=== PATIENT | female | born 1940 | race Caucasian/White ===

== ENCOUNTER 2018-10-28 12:46 | Emergency (ER) | payer MEDICARE, BC ==
[2018-10-28] MEDS ORDERED: Tetan/Diph/Pertus SYR(Tdap)* 0.5 ML SYR(BOOSTRIX) use SYR IM ONE (13:59)
[2018-10-28] MEDS ORDERED: Lidocaine 1%* 5 ML VIAL INJ ONE (14:06)
--- NOTE | 2018-10-28 14:09 | UC ---
Laceration HPI - HPI Summary HPI Summary: 78 -year-old female who sustained numerous superficial lacerations to her left index finger and middle finger from a chainsaw. Her was using a chainsaw and she had her foot on the log he was cutting. When he cut through the log it gave way and she lost her balance and put her hand out and touch the chainsaw while it was spinning. Last tetanus was more than 10 years ago. - History Of Current Complaint Chief Complaint: UCLaceration Stated Complaint: LACERATION ON RT HAND Time Seen by Provider: 10/28/18 13:58 Hx Obtained From: Patient Laceration Location: Finger Mechanism Of Injury: Sharp Trauma Onset/Duration: Sudden Onset Severity: Moderate Pain Intensity: 2 Aggravating Factors: Movement - Allergies/Home Medications Allergies/Adverse Reactions: Allergies Allergy/AdvReac Type Severity Reaction Status Date / Time clindamycin Allergy Hives Verified 10/28/18 15:23 Penicillins Allergy Hives Verified 10/28/18 13:23 Home Medications: Home Medications Ascorbic Acid TAB* [Vitamin C TAB*] 500 mg PO DAILY 10/28/18 [History Confirmed 10/28/18] Calcium Carbonate [Calcium] 500 mg PO 10/28/18 [History] Garlic [Sm Garlic] 150 mg PO 10/28/18 [History] Lutein 10 mg PO 10/28/18 [History Confirmed 10/28/18] Magnesium Oxide [Magnesium] 250 mg PO 10/28/18 [History] Multivitamin [Multivitamins] 1 cap PO 10/28/18 [History] PMH/Surg Hx/FS Hx/Imm Hx Previously Healthy: Yes Endocrine History: Thyroid Disease GI/ History: Gastroesophageal Reflux - Surgical History Surgical History: None - Family History Known Family History: Positive: Non-Contributory - Social History Occupation: Retired Alcohol Use: Daily Alcohol Amount: ONE GLASS OF WINE Substance Use Type: None Smoking Status (MU): Never Smoked Tobacco Review of Systems All Other Systems Reviewed And Are Negative: Yes Skin: Positive: Other - Numerous superficial lacerations to left index and middle finger with a large one at the base of the left index finger. Motor: Positive: Negative Neurovascular: Positive: Negative Musculoskeletal: Positive: Negative Neurological: Positive: Negative Is Patient Immunocompromised?: No Physical Exam Triage Information Reviewed: Yes Appearance: Well-Appearing, No Pain Distress, Well-Nourished Vital Signs: Initial Vital Signs Temp 98.1 F 10/28/18 13:14 Pulse 72 10/28/18 13:14 Resp 18 10/28/18 13:14 BP 137/63 10/28/18 13:14 Pulse Ox 99 10/28/18 13:14 Vital Signs Reviewed: Yes Musculoskeletal: Positive: Strength Intact, ROM Intact, Other: - Good peripheral pulses neuro sensation capillary refill good finger strength to flexion extension against resistance. Neurological: Positive: Alert, Muscle Tone Normal Psychological Exam: Normal Skin: Positive: Other - Laceration at the base of the left index finger palmar side is approximately 2.0 cm long with a small area that's been gouged out, just below the PIP joint on the same finger is a superficial laceration approximately 1.0 cm palmar side, just proximal to the DIP joint there is a 1.0 cm laceration which is mildly gaping. The left index finger has superficial V- shaped lacerations with no bleeding. Laceration Course/Dx - Course/Dx Course Of Treatment: The suturable lacerations were anesthetized using lidocaine 1% plain. They were all irrigated well and no foreign bodies were noted. The proximal laceration palmar aspect left index finger was sutured using 4-0 Prolene and sutures placed numbered 5. The laceration below the PIP joint area was sutured using one suture of 40 prolene, the laceration proximal to the DIP joint was sutured using 40 prolene sutures placed #3. Patient tolerated procedure well. She was given dressings of non-stick Adaptic bulky dressing. She is to follow -up with her primary care provider for suture removal in 7-10 days but a definite recheck on Wednesday. At this point in time this was not a dirty wound and I'm not going to place her on antibiotics, I will let her primary care provider look at it on Wednesday and see how it's healing. She was given Tdap tetanus immunization here. An x-ray of the left hand was done which was negative for fracture or foreign body. Patient tolerated the procedures extremely well. - Diagnosis Provider Diagnosis: Laceration of left index finger, Laceration of left middle finger Discharge - Sign-Out/Discharge Documenting (check all that apply): Patient Departure All imaging exams completed and their final reports reviewed: Yes - Discharge Plan Condition: Fair Disposition: HOME Patient Education Materials: Care For Your Stitches (DC) Referrals: Santino Blair MD [Primary Care Provider] - Additional Instructions: Follow-up with your primary care provider Wednesday or Wednesday to have them recheck the wounds. Change her dressings daily. Elevate as much as possible. May take Tylenol for pain. You were given a Tdap tetanus immunization which is good for 8-10 years. Follow-up with your primary care provider for removal of the sutures in approximately 7-10 days. - Billing Disposition and Condition Condition: FAIR Disposition: Home
[2018-10-28 16:00] VITALS: BP 138/59
== END 2018-10-28 16:33 | disposition home or self-care (01) ==
LOC: UCCORT 12:46
DX: S61.211A Laceration without foreign body of left index finger without damage to nail, initial encounter (principal); S61.213A Laceration without foreign body of left middle finger without damage to nail, initial encounter; W29.3XXA Contact with powered garden and outdoor hand tools and machinery, initial encounter; Y92.9 Unspecified place or not applicable; Z23 Encounter for immunization; Z88.1 Allergy status to other antibiotic agents; Z88.0 Allergy status to penicillin
CPT/HCPCS: 12002; 90471; 90715; 99202; G0463